=== PATIENT | female | born 1995 | race African-American/Black ===

== ENCOUNTER 2020-06-27 23:02 | Emergency (ER) | payer SELFPAY ==
[~2020-06-27] VITALS: Ht 144.8 cm; Wt 65.8 kg
[2020-06-27] MEDS ORDERED: IV NORMAL SALINE 1000 ML BAG IV ONE (23:15)
--- NOTE | 2020-06-27 23:23 | NUR ---
at bedside for MSE.
[2020-06-27 23:32] LABS: BASOPHILS % (AUTO) 0.8 % (0.0-2.0); EOSINOPHILS # (AUTO) 0.2 K/uL (0.0-0.7); EOSINOPHILS % (AUTO) 2.9 % (0.0-7.0); HEMATOCRIT 41.1 % (31.2-41.9); HEMOGLOBIN 13.6 g/dL (10.9-14.3); LYMPHOCYTES # (AUTO) 1.8 K/uL (20.0-40.0); LYMPHOCYTES % (AUTO) 31.6 % (20.5-51.5); MEAN CORPUSCULAR HEMOGLOBIN 32.6 uug (24.7-32.8); MEAN CORPUSCULAR HGB CONC 33 g/dL (32.3-35.6); MEAN CORPUSCULAR VOLUME 98.8 fL (75.5-95.3); MONOCYTES # (AUTO) 0.5 K/uL (2.0-10.0); MONOCYTES % (AUTO) 8.9 % (0.0-11.0); NEUTROPHILS # (AUTO) 3.1 K/uL (1.8-8.9); NEUTROPHILS % (AUTO) 55.8 % (38.5-71.5); PLATELET COUNT (AUTO) 265 K/uL (179-408); RED BLOOD CELL COUNT(AUTO) 4.16 MIL/uL (3.63-4.92); WHITE BLOOD COUNT (AUTO) 5.6 K/uL (3.8-11.8)
[2020-06-27 23:47] LABS: CARBON DIOXIDE 27 mmol/L (21-32); CHLORIDE 108 mmol/L (98-107); CREATININE 0.8 mg/dL (0.6-1.3); GLUCOSE 88 mg/dL (74-106); POTASSIUM 4.2 mmol/L (3.5-5.1); UREA NITROGEN, BLOOD 13 mg/dL (7-18)
[2020-06-27 23:58] LABS: ALANINE AMINOTRANSFERASE 33 U/L (14-59); ALKALINE PHOSPHATASE 78 U/L (50-136); ASPARTATE AMINOTRANSFERASE 29 U/L (15-37); BILIRUBIN,DIRECT 0.1 mg/dL (0.0-0.2); BILIRUBIN,TOTAL 0.1 mg/dL (0.2-1.0); TOTAL PROTEIN, SERUM 8.5 g/dL (6.4-8.2)
[2020-06-28 00:09] LABS: *URINE HCG, QUAL NEGATIVE (NEGATIVE)
--- NOTE | 2020-06-28 00:34 | NUR ---
Patient discharged to home in stable condition. Written and verbal after care instructions given. Patient verbalizes understanding of instructions. Stressed follow up or return to ER for worsening s/s. No acute distress noted. Pt ambulated out of ER with steady gait. All belongings with with patient. Patient given written and verbal discharge instructions. Patient verbalizes understanding of instructions. Patient is ambulatory with steady gait. Refuses offer of residential placement. Patient given list of available shelters in surrounding area.
[2020-06-28 00:35] VITALS: BP 145/62
== END 2020-06-28 00:37 | disposition home or self-care (01) ==
LOC: ER 23:07
DX: R10.9 Unspecified abdominal pain (principal); F20.9 Schizophrenia, unspecified; F22 Delusional disorders; Z59.0 Homelessness; Z91.048 Other nonmedicinal substance allergy status
CPT/HCPCS: 36415; 84703; 85025; A4663; J7030